=== PATIENT | female | born 1985 | race Caucasian/White ===

== ENCOUNTER 2022-07-20 11:24 | Outpatient (CLI) | payer BC, SELFPAY ==
--- NOTE | ~2022-07-20 | MMUS_ITS ---
EXAMINATION: MM diagnostic gonzales BI w aretha, US breast BI complete HISTORY: Palpable bilateral breast abnormalities TECHNIQUE: Additional 3-D tomosynthesis images of the breasts were performed and synthetic 2-D images were generated. CAD analysis was submitted and interpreted. High resolution complete bilateral breas t ultrasound was performed. COMPARISON: None BREAST PARENCHYMAL COMPOSITION: The breasts are extremely dense, which lowers the sensitivity of mamm ography FINDINGS: MAMMOGRAPHIC FINDINGS: There are no suspicious masses, calcifications or architectural distortion in either breast to sugges t malignancy. ULTRASOUND: Complete bilateral US of all 4 quadrants of the breasts and retroareolar region was reviewed. No susp icious solid or cystic masses of the right breast to suggest malignancy. In the left breast at 4:00, 1 cm from the nipple, there is an 8 mm cyst. At 5:00, 1 cm from the nipple, there is a 1.4 cm cyst. N o suspicious masses in the left breast to suggest malignancy. IMPRESSION: 1. No evidence for malignancy in either breast. Benign findings. 2. Routine yearly screening mammogram and regular clinical breast examination are recommended. BI-RADS Category 2: Benign finding(s). Reviewed, dictated and finalized at location A. CUTTER IMPRESSION: 1. No evidence for malignancy in either breast. Benign findings. 2. Routine yearly screening mammogram and regular clinical breast examination a re recommended. BI-RADS Category 2: Benign finding(s).
== END 2022-07-20 11:25 | disposition home or self-care (01) ==
PROVIDERS: Visit Provider Obstetrics & Gynecology
DX: Z01.419 Encounter for gynecological examination (general) (routine) without abnormal findings (principal); N63.11 Unspecified lump in the right breast, upper outer quadrant
CPT/HCPCS: 76641; 77062; 77066; G0279

== ENCOUNTER 2023-03-26 09:41 | Outpatient (CLI) | payer BC, SELFPAY ==
--- NOTE | ~2023-03-26 | MR_ITS ---
EXAMINATION: MR breast BI wo/w con INDICATION: Left breast cyst, dense breast tissue, and history of palpable lump of the left breast TECHNIQUE: Axial VIBRANT pre and dynamic post contrast, Sagittal VIBRANT post contrast, Axial T2 STIR ASSET COMPARISON: None CONTRAST: Multihance, 15 cc BREAST COMPOSITION: Heterogeneous fibroglandular tissue FINDINGS: RIGHT BREAST: There is moderate background parenchymal enhancement. No abnormal enhancement is presen t after contrast administration. No pathologically enlarged axillary or internal mammary lymph nodes are identified. LEFT BREAST: There is moderate background parenchymal enhancement. There is an area of regional nonma ss enhancement in the lower outer quadrant of the left breast measuring up to 5.4 x 3.3 cm. Small int ersperse cysts are noted internally measuring up to 6 mm. No discrete suspicious mass is identified. On the comparison ultrasound dated 07/20/2022, a correlate can be seen at the 4:00 location in the lo wer outer left breast which demonstrates small cysts interspersed among what appeared at the time to reflect dense breast tissue. IMPRESSION: 1. Regional nonmass enhancement in the lower outer quadrant of the left breast. Retrospective review of the previous left breast ultrasound, when accounting for the area of enhancement seen on MRI, appe ars to demonstrate correlate at the 4:00 location of the left breast. Integrating the MRI and ultraso und findings, ultrasound-guided biopsy of the soft tissue interspersed among the cystic changes at th e 4:00 location of the left breast is recommended. BI-RADS category 4, suspicious findings. Reviewed, dictated and finalized at location A. IMPRESSION: 1. Regional nonmass enhancement in the lower outer quadrant of the left breast. Retrospective review of the previous left breast ultrasound, when accounting f or the area of enhancement seen on MRI, appears to demonstrate correlate at the 4:00 location of the left breast. Integrating the MRI and ultrasound findings, ultrasound-guided biopsy of the soft tissue interspersed among the cystic martinez ges at the 4:00 location of the left breast is recommended. BI-RADS category 4, suspicious findings.
== END 2023-03-26 09:42 | disposition home or self-care (01) ==
PROVIDERS: Visit Provider Obstetrics & Gynecology
DX: N60.02 Solitary cyst of left breast (principal); R92.2 Inconclusive mammogram
CPT/HCPCS: 77049; A9577; C8908